=== PATIENT | female | born 1985 | race Caucasian/White ===

== ENCOUNTER 2016-10-24 06:49 | Emergency (ER) | payer OTHER ==
--- NOTE | ~2016-10-24 | US67 ---
[facility] A Service of [facility] RADIOLOGY TEXT RESULTS PATIENT: FADI STONE LOCATION: [facility] : [birth year] UNIT #: [id number] AGE: [address]: Lio Polk MD SEX: F ORDER DR: [id number] [facility] [address] [place], [place] [address] [id number] E MR#: [id number] Acc #: [id number] NAME: FADI STONE : 1985 SEX: F STUDY DATE/TIME: 10/24/2016 8:20 UNIT: QUAN ROOM: STUDY DESCRIPTION: Gallbladder Attending Physician: Lio Polk M.D. Ordering Physician: Lio Polk M.D. Primary Care Physician: No Primary Care Physician MEDICAL IMAGING REPORT This report is preliminary unless electronic signature is present EXAM Ultrasound of the gallbladder. HISTORY Abdominal pain for 3 days with nausea and vomiting. FINDINGS Longitudinal and transverse sonograms of the right upper quadrant were obtained. Pancreas head and body are well seen and appear normal. There is no ductal dilatation. Gallbladder appears sonographically normal. There is no evidence of gallbladder distension, wall thickening, or pericholecystic fluid. The common bile duct is dilated measuring about 9 mm in greatest diameter. Question is raised of very mild intrahepatic biliary dilatation as well. No focal liver lesions are identified. Right kidney measures 10.5 cm and appears sonographically normal. CONCLUSION 1. Dilated common bile duct which appears to be down to the head of the pancreas measuring up to 9 mm in diameter. 2. Question raised of very mild intrahepatic biliary dilatation. 3. Normal-appearing gallbladder. RECOMMENDATIONS Suggest a CT of the abdomen with IV contrast media. Dictated by... Tonny Lance M.D. THIS IS AN ELECTRONICALLY VERIFIED REPORT Tonny Lance M.D. at 10/24/2016 5:03 PM STEPHK/donaw [facility] A Service of [facility] RADIOLOGY TEXT RESULTS PATIENT: FADI STONE LOCATION: [facility] : [birth year] UNIT #: [id number] AGE: [address]: Lio Polk MD SEX: F ORDER DR: TD: 10/24/2016 13:39 JOB #: [id number] MEDICAL IMAGING REPORT COPY
--- NOTE | ~2016-10-24 | CR63 ---
[facility] A Service of [facility] RADIOLOGY TEXT RESULTS PATIENT: FADI TSONE LOCATION: [facility] : 87 UNIT #: [id number] AGE: [address]: Lio Polk MD SEX: F ORDER DR: [id number] [facility] [address] [place], [place] [address] [id number] E MR#: [id number] Acc #: [id number] NAME: FADI STONE : 1985 SEX: F STUDY DATE/TIME: 10/24/2016 7:11 UNIT: [facility] ROOM: STUDY DESCRIPTION: CR Chest 2 View Attending Physician: Lio Polk M.D. Ordering Physician: Baldemar Laguna Aprn Primary Care Physician: No Primary Care Physician MEDICAL IMAGING REPORT This report is preliminary unless electronic signature is present EXAM PA and lateral chest radiograph dated 10/24/2016 COMPARISON None EXAM History supplied is cough, shortness of breath, congestion for 3 days. FINDINGS PA and lateral views of the chest are obtained. The cardiovascular configuration of the chest is normal and the lungs are clear. CONCLUSION Normal chest Dictated by... Tonny Lance M.D. THIS IS AN ELECTRONICALLY VERIFIED REPORT Tonny Lance M.D. at 10/24/2016 5:03 PM STEPHANIE/paulo TD: 10/24/2016 13:32 JOB #: [id number] MEDICAL IMAGING REPORT COPY
[~2016-10-24 06:49] MED LIST: ACETAMINOPHEN PO; ACETAMINOPHEN PR; ALBUTEROL17 GM INH; BACTRIM DS TABL1 TA1 PO; BREO ELLIPTA 21 EACH; HYDROXYZINE HCL10 MG PO; LEXAPRO20 MG PO; MEDROL4 MG/DOSE- PO; NAPROSYN250 M1 PO; NO MEDICATIONS; PERCOCET5/325 PO; SINGULAIR; SINGULAIR PO
[2016-10-24 06:52] LABS: BASOPHIL# 0.1 X10e3 (0-0.3); EOSINOPHIL# 0.7 X10e3 (0-0.7); EOSINOPHIL% 7.5 % (0.0-7.0); HEMATOCRIT 44.4 % (35.0-45.0); HEMOGLOBIN 14.7 gm/dL (12.0-16.0); LYMPHOCYTE# 2.8 X10e3 (1.0-3.5); LYMPHOCYTE% 32.2 % (17.0-45.0); MEAN CELL VOLUME 89.8 FL (83-96); MEAN CORPUSCULAR HEMOGLOBIN 29.6 PG (28-34); MEAN PLATELET VOLUME 6.6 FL (6.5-11.5); MONOCYTE# 0.6 X10e3 (0-1.0); MONOCYTE% 7.1 % (3.0-12.0); NEUTROPHIL# 4.5 X10e3 (1.5-7.1); NEUTROPHIL% 52.2 % (40-75); PLATELET COUNT 273 X10e3 (140-420); RED BLOOD COUNT 4.95 X10e (3.90-5.30); RED CELL DISTRIBUTION WIDTH 13.2 % (11.0-15.5); WHITE BLOOD COUNT 8.7 X10e3 (4.0-10.5)
[2016-10-24 06:58] LABS: DIFF IND NO
[2016-10-24 08:10] LABS: ALBUMIN SERUM 3.7 g/dL (3.5-5.0); ALKALINE PHOSPHATASE 74 U/L (32-92); ALT (SGPT) 23 U/L (10-40); AST (SGOT) 27 U/L (10-42); BILIRUBIN, DIRECT 0.2 mg/dL (0.0-0.2); BILIRUBIN,INDIRECT 0.7 mg/dL (0.0-0.9); BILIRUBIN,TOTAL 0.9 mg/dL (0.2-2.0); BLOOD UREA NITROGEN 9 mg/dL (9-23); BUN/CREATININE RATIO 12.85; CALCIUM SERUM 9.2 mg/dL (8.4-10.2); CARBON DIOXIDE 23 mmol/L (22-31); CHLORIDE 103 mmol/L (100-111); CREATININE SERUM 0.7 mg/dL (0.6-1.4); GLOM FILT RATE Estimated ABOVE60 mL/min (>60); GLUCOSE FASTING 91 mg/dL (70-110); LIPASE 17 U/L (22-51); POTASSIUM 3.8 mmol/L (3.5-5.1); PROTEIN TOTAL SERUM 6.7 g/dL (6.0-8.3); SODIUM 138 mmol/L (135-145)
[2016-10-24 08:28] LABS: URINE APPEARANCE TURBID; URINE BILIRUBIN NEG (NEG); URINE BLOOD 3+ (NEG); URINE COLOR YELLOW; URINE GLUCOSE NEG (NEG); URINE KETONE TRACE (NEG); URINE LEUKOCYTE ESTERASE 3+ (NEG); URINE NITRATE POS (NEG); URINE PROTEIN NEG (NEG); URINE SPECIFIC GRAVITY 1.023 (1.003-1.035); URINE UROBILINOGEN 0.2 MG/DL (NEG)
[2016-10-24 08:30] LABS: CULTURE INDICATED? YES; URBCS1 AUWI 25-50 /[HPF] (0-2)
[2016-10-24 08:47] LABS: URINE BACTERIA AUWI 2+ (NEGATIVE); URINE SQUAMOUS EPITHELIAL CELL MANY /[HPF]; UWBCS1 AUWI 25-50 (0-5)
== END 2016-10-24 10:34 | disposition home or self-care (01) ==
LOC: CED 06:49
PROVIDERS: Nurse Practitioner Family
DX: J45.901 Unspecified asthma with (acute) exacerbation (principal); N39.0 Urinary tract infection, site not specified; F17.210 Nicotine dependence, cigarettes, uncomplicated; Z79.899 Other long term (current) drug therapy; K82.8 Other specified diseases of gallbladder; Z98.890 Other specified postprocedural states
CPT/HCPCS: 36415; 71020; 76705; 80048; 80076; 81003; 83690; 84703; 85025; 87086; 87088; 87186; 94640; 96361; 96365; 96375; 99284; J0696; J2405; J2930

== ENCOUNTER 2016-11-04 05:12 | Emergency (ER) | payer OTHER ==
--- NOTE | ~2016-11-04 | CT2 ---
[facility] A Service of [facility] RADIOLOGY TEXT RESULTS PATIENT: FADI STONE LOCATION: [facility] : 87 UNIT #: [id number] AGE: [address]: Wilfredo Mohamud MD SEX: F ORDER DR: [id number] [facility] [address] [place], [place] [address] [id number] E MR#: [id number] Acc #: [id number] NAME: FADI STONE : 1985 SEX: F STUDY DATE/TIME: 11/04/2016 8:02 UNIT: [facility] ROOM: STUDY DESCRIPTION: CT Abd and Pelv W Cont Attending Physician: Wilfredo Mohamud M.D. Ordering Physician: Baldemar Laguna Aprn Primary Care Physician: No Primary Care Physician MEDICAL IMAGING REPORT This report is preliminary unless electronic signature is present EXAM CT abdomen and pelvis with IV contrast COMPARISON Gallbladder ultrasound dated October 24, 2016 INDICATIONS 31-year-old female with low back pain and no bowel movement for 1 week. Nausea and vomiting for 1 week. Possible bowel obstruction. TECHNIQUE Axial CT imaging of the abdomen and pelvis was performed after IV administration of Isovue 370. Approximately 100 mL were injected This CT exam was performed with one or more of the following radiation dose reduction techniques: Automatic exposure control, adjustment of mA and/or kV according to patient size, and iterative reconstruction. FINDINGS Axial CT imaging was performed. Coronal and sagittal reformats were constructed. Multilevel Schmorl node formation of the lower thoracic spine. Large posterior disc protrusion at L5-S1 where there is marked disc height loss. No significant findings in the imaged lower chest. The liver, gallbladder, pancreas, spleen, adrenal glands and kidneys are unremarkable. No hydronephrosis or hydroureter. No renal or ureteral calculi. Urinary bladder is unremarkable. CT appearance of the uterus is within normal limits. There is a crenulated rim-enhancing hypoattenuating lesion in the left ovary measuring up to 1.3 cm most consistent with an involuting corpus luteum cyst. There is trace free fluid in the pelvis, likely physiologic. There is a large diffuse colonic stool burden. Appendix is normal. No pneumoperitoneum. Urinary bladder is unremarkable. No evidence of mechanical bowel obstruction. Abdominal aorta is normal in course and caliber, with patency of its main branches. [facility] A Service of [facility] RADIOLOGY TEXT RESULTS PATIENT: FADI STONE LOCATION: [facility] : 87 UNIT #: [id number] AGE: [address]: Wilfredo Mohamud MD SEX: F ORDER DR: There is no evidence of venous thrombosis. No adenopathy in the abdomen or pelvis. IMPRESSION 1. 1.3 cm corpus luteum cyst in the left ovary. There is small amount free fluid the pelvis, likely physiologic. 2. Large posterior disc protrusion at L5-S1. 3. Moderate to large diffuse colonic stool burden. No evidence of mechanical bowel obstruction. No other significant findings. Dictated by... Elliott Pendleton M.D. THIS IS AN ELECTRONICALLY VERIFIED REPORT Elliott Pendleton M.D. at 11/07/2016 9:53 AM FABY/forest TD: 11/04/2016 19:15 JOB #: [id number] MEDICAL IMAGING REPORT Page 1 of 1 COPY
[2016-11-04 06:06] LABS: URINE APPEARANCE CLEAR; URINE BILIRUBIN NEG (NEG); URINE BLOOD 3+ (NEG); URINE COLOR YELLOW; URINE GLUCOSE NEG (NEG); URINE KETONE NEG (NEG); URINE LEUKOCYTE ESTERASE 1+ (NEG); URINE NITRATE POS (NEG); URINE PH 6.5 (5-8); URINE PROTEIN NEG (NEG); URINE SPECIFIC GRAVITY 1.024 (1.003-1.035)
[2016-11-04 06:09] LABS: BASOPHIL# 0.1 X10e3 (0-0.3); BASOPHIL% 0.9 % (0-2.5); EOSINOPHIL# 0.6 X10e3 (0-0.7); EOSINOPHIL% 5.5 % (0.0-7.0); HEMATOCRIT 42.7 % (35.0-45.0); HEMOGLOBIN 14.2 gm/dL (12.0-16.0); LYMPHOCYTE# 2.6 X10e3 (1.0-3.5); LYMPHOCYTE% 25.8 % (17.0-45.0); MEAN CELL VOLUME 90.1 FL (83-96); MEAN CORPUSCULAR HEMOGLOBIN 29.9 PG (28-34); MEAN CORPUSCULAR HGB CONC 33.2 g/dL (30-36); MONOCYTE# 0.8 X10e3 (0-1.0); MONOCYTE% 7.8 % (3.0-12.0); PLATELET COUNT 287 X10e3 (140-420); RED BLOOD COUNT 4.74 X10e (3.90-5.30); RED CELL DISTRIBUTION WIDTH 13.4 % (11.0-15.5)
[2016-11-04 06:10] LABS: CULTURE INDICATED? YES; URBCS1 AUWI 100-200 /[HPF] (0-2); URINE BACTERIA AUWI 4+ (NEGATIVE); URINE SQUAMOUS EPITHELIAL CELL OCC /[HPF]
[2016-11-04 06:11] LABS: DIFF IND NO
[2016-11-04 06:37] LABS: ALBUMIN SERUM 3.7 g/dL (3.5-5.0); BILIRUBIN, DIRECT 0.1 mg/dL (0.0-0.2); BILIRUBIN,TOTAL 0.1 mg/dL (0.2-2.0); BUN/CREATININE RATIO 13.33; CALCIUM SERUM 9.1 mg/dL (8.4-10.2); CREATININE SERUM 0.6 mg/dL (0.6-1.4); GLOM FILT RATE Estimated 122.3 mL/min (>60); POTASSIUM 3.9 mmol/L (3.5-5.1); PROTEIN TOTAL SERUM 6.8 g/dL (6.0-8.3)
== END 2016-11-04 10:32 | disposition home or self-care (01) ==
LOC: CED 05:12
PROVIDERS: Nurse Practitioner Family
DX: N39.0 Urinary tract infection, site not specified (principal); E11.9 Type 2 diabetes mellitus without complications; J45.909 Unspecified asthma, uncomplicated; F41.8 Other specified anxiety disorders; F17.210 Nicotine dependence, cigarettes, uncomplicated; Z79.899 Other long term (current) drug therapy
CPT/HCPCS: 36415; 74177; 80048; 80076; 81003; 82150; 83690; 84703; 85025; 87086; 87088; 87186; 94640; 96361; 96374; 99284; J2270; Q9967

== ENCOUNTER 2016-12-14 19:08 | Emergency (ER) | payer OTHER | END 2016-12-14 22:10 | disposition home or self-care (01) | LOC: CFTX 19:08 | DX: L02.413 Cutaneous abscess of right upper limb (principal); J45.909 Unspecified asthma, uncomplicated; F41.8 Other specified anxiety disorders; F17.210 Nicotine dependence, cigarettes, uncomplicated | CPT/HCPCS: 10060; 99283 ==

== ENCOUNTER 2017-01-24 02:51 | Emergency (ER) | payer OTHER ==
--- NOTE | ~2017-01-24 | CR133 ---
[facility] A Service of [facility] RADIOLOGY TEXT RESULTS PATIENT: FADI STONE LOCATION: [facility] : 87 UNIT #: [id number] AGE: [address]: Lizandro Kong MD SEX: F ORDER DR: [id number] [address] [address] [id number] E MR#: [id number] Acc #: [id number] NAME: FADI STONE : 1985 SEX: F STUDY DATE/TIME: 01/24/2017 3:19 UNIT: SED ROOM: STUDY DESCRIPTION: CR Forearm 2 View Rt Attending Physician: Lizandro Kong M.D. Ordering Physician: Lizandro Kong M.D. Primary Care Physician: Primary Care Physician No MEDICAL IMAGING REPORT This report is preliminary unless electronic signature is present. EXAM Right forearm INDICATION Right forearm pain, swelling and redness. Area is hot to the touch with lumps. Patient is an IV drug abuser. Symptoms have been present since 01/15/2017. FINDINGS Two views of the right forearm were obtained. No fractures or foreign bodies are identified. The bones are normal. IMPRESSION Normal right forearm. Dictated by... Taurus Ramirez M.D. THIS IS AN ELECTRONICALLY VERIFIED REPORT Taurus Ramirez M.D. at 01/24/2017 1:21 PM MICHOACANO/jimmy TD: 01/24/2017 06:02 JOB #: [id number] MEDICAL IMAGING REPORT Page 1 of 1
[2017-01-24] MEDS ORDERED: LEXAPRO20 MG (02:57)
[2017-01-24] MEDS ORDERED: BREO ELLIPTA 21 EACH (02:57)
[2017-01-24] MEDS ORDERED: GLUCOPHAGE XR500 MG PO (02:58)
== END 2017-01-24 03:48 | disposition home or self-care (01) ==
LOC: SED 02:51
DX: L73.8 Other specified follicular disorders (principal); F41.9 Anxiety disorder, unspecified; F32.9 Major depressive disorder, single episode, unspecified; J45.909 Unspecified asthma, uncomplicated; F17.200 Nicotine dependence, unspecified, uncomplicated; Z79.899 Other long term (current) drug therapy; Z79.84 Long term (current) use of oral hypoglycemic drugs
CPT/HCPCS: 73090; 99283